=== PATIENT | female | born 1995 | race Caucasian/White ===

== ENCOUNTER → 2016-12-09 | Outpatient (REF) | payer OTHER | LOC: M SFHCADAM 15:19 | PROVIDERS: ATTEND Physician Assistant Medical | DX: E28.2 Polycystic ovarian syndrome (principal) ==

== ENCOUNTER → 2020-08-16 | Outpatient (REF) | payer OTHER | LOC: M SFHCWAGY 17:30 | PROVIDERS: ATTEND Physician Assistant Medical | DX: Z12.4 Encounter for screening for malignant neoplasm of cervix (principal) ==